=== PATIENT | female | born 1960 | race Caucasian/White ===

== ENCOUNTER → 2018-12-03 | Day surgery (SDC) | payer OTHER ==
--- NOTE | 2018-12-08 13:05 | PATH ---
Surgical Pathology Report Patient Name: ABIGAIL SNYDER [facility]. Rec. #: [id number] /Age/Gender: 1960 (Age: 58) / F Account: [id number] Location: [facility] Taken: 12/03/2018 Received: 12/03/2018 Reported: 12/07/2018 Physicians: Brandon Kee Specimen(s) Received A: LEFT BREAST SPECIMEN - WITH CALCIFICATIONS B: LEFT BREAST SPECIMEN - WITHOUT CALCIFICATIONS Clinical History Mammographic findings: Suspicious microcalcification Final Diagnosis A. LEFT BREAST SPECIMEN WITH CALCIFICATIONS, STEREOTACTIC BIOPSY: BREAST TISSUE WITH MICROCYSTS, APOCRINE METAPLASIA, FOCAL HISTIOCYTIC REACTION, STROMAL FIBROSIS, AND ASSOCIATED CALCIUM OXALATE CRYSTALS. B. LEFT BREAST SPECIMEN WITHOUT CALCIFICATIONS, STEREOTACTIC BIOPSY: BREAST TISSUE WITH PAPILLARY AND CYSTIC APOCRINE METAPLASIA, AND STROMAL FIBROSIS. Electronically Signed Miles Mendoza M.D. Gross Description A. Received in formalin, labeled "left breast with calcifications" are four cores of light terry and yellow-terry tissue, ranging from 1-1.5 cm in length with a diameter of up to 0.3 cm. Entirely submitted in one cassette. B. Received in formalin, labeled "left breast without calcifications" are two cores of light terry and yellow-terry tissue measuring 1.8 cm and 2 cm in length and up to 0.3 cm in diameter. Entirely submitted in one cassette. Time to formalin fixation: 5 minutes. Total formalin fixation time: Approximately 8 hours AE/12/03/2018 ebram/12/03/2018
== END | disposition home or self-care (01) ==
LOC: FMAMMOTONE 09:26
PROVIDERS: ATTEND Obstetrics & Gynecology
PROC: 0HBU3ZX Excision of Left Breast, Percutaneous Approach, Diagnostic (ICD-10-PCS; principal; 2018-12-03)
DX: N60.12 Diffuse cystic mastopathy of left breast (principal); N60.32 Fibrosclerosis of left breast; N64.89 Other specified disorders of breast; R92.1 Mammographic calcification found on diagnostic imaging of breast
CPT/HCPCS: 19081; 88305-TC